=== PATIENT | female | born 1985 | race Caucasian/White ===

== ENCOUNTER 2024-04-15 19:06 | Emergency (ER) | payer BC, SELFPAY ==
[2024-04-15 19:08] VITALS: BP 151/69; PULSE 85; RESP 15; TEMP 37.2; O2SAT 97
--- NOTE | 2024-04-15 19:25 | ED.GENADUL_ITS ---
Discharge Plan Disposition Patient Disposition: Home Condition: Stable Discharge Details Clinical Impression: Cystitis ED Provider: Frederick Guaman Home Meds and New Rx's Prescriptions: New nitrofurantoin monohyd/m-cryst [Macrobid] 100 mg capsule 100 mg PO Q12H 5 Days Qty: 10 0RF Rx Instructions: must administer with a meal/food Discharge Instructions Additional Instructions: Your urine is consistent with a urinary tract infection if not improving in a few days follow-up with your primary care provider If not improving in a few days follow-up with your primary care provider If you feel more ill or have new symptoms such as high fevers or severe abdominal pain return to the emergency department for reevaluation HPI General Mode of arrival: ambulatory . Date/Time Provider Initiated Documentation: 04/15/24 19:07 . Limitations to Documentation: no limitations . Information obtained by: patient . History of Present Illness 38 year old F presents to the emergency department with the chief complaint of urinary symptoms, described as moderate, Patient started experiencing this day(s) (5) and it has been constant. No relieving factors improve symptom(s), No exacerbating factors reported . Patient notes denies fever/chills and nausea/vomiting. Patient did receive the following treatments prior to arrival, none Related Data Home Medications ?Medication ?Instructions ?Recorded ?Confirmed nitrofurantoin 100 mg PO Q12H 5 days #10 caps 04/15/24 monohydrate/macrocrystals 100 mg capsule (Macrobid) Previous Rx's ?Medication ?Instructions ?Recorded nitrofurantoin 100 mg PO Q12H 5 days #10 caps 04/15/24 monohydrate/macrocrystals 100 mg capsule (Macrobid) Allergies Allergy/AdvReac Type Severity Reaction Status Date / Time No Known Allergies Allergy Unverified 04/15/24 19:34 General Stated Complaint: Urinary LASHON: 4 Review of Systems All systems reviewed & are unremarkable except as noted in HPI and below Constitutional Constitutional: Denies chills, Denies fever(s) and Denies weakness Cardiovascular Cardiovascular: Denies dyspnea Respiratory Respiratory: Denies cough and Denies dyspnea Gastrointestinal Gastrointestinal: Denies abdominal pain and Denies vomiting Genitourinary Genitourinary: Reports dysuria and Reports urinary urgency Neurologic Neurologic: Denies weakness Exam Const General: no acute distress Orientation: alert HENWV Head: normal to inspection Ears: external ears normal General nose exam: external nose normal Mouth: moist mucous membranes Eyes General: appearance normal, both eyes and all related structures Neck Neck: normal visual inspection Resp Effort & Inspection: normal respiratory effort and able to speak in complete sentences Cardio Rate: regular rate GI Palpation: soft and nontender General: No CVA tenderness Skin General skin exam: no rashes or lesions noted Neuro General: patient alert and patient oriented x3 Extrem General: normal to inspection Psych Mental Status: mental status grossly normal Course Vital Signs Vital signs: Vital Signs Temperature 37.2 C 04/15/24 19:08 Pulse 85 04/15/24 19:08 Respiratory Rate 15 04/15/24 19:08 Blood Pressure 151/69 H 04/15/24 19:08 Pulse Oximetry 97 04/15/24 19:08 Temperature 37.2 C 04/15/24 19:08 Temperature Source Tympanic 04/15/24 19:08 Pulse 85 04/15/24 19:08 Respiratory Rate 15 04/15/24 19:08 Blood Pressure 151/69 H 04/15/24 19:08 Blood Pressure Position Sitting 04/15/24 19:08 Pulse Oximetry 97 04/15/24 19:08 Oxygen Delivery Method Nasal Cannula 04/15/24 19:08 Pain Level 6 04/15/24 19:08 Lab/Test Results Lab/Test Results: POC- Test(urine) Negative Medical Decision Making 38-year-old female who denies any chronic medical problems comes in with 5 days of burning with urination and urinary urgency. She says she has intermittent lower back pain as well. Denies any abdominal pain or vomiting or fevers. She appears well on exam speaking in full sentences in no distress. She has a soft nontender abdomen, no CVA tenderness. Denies any vaginal discharge or bleeding or irritation. Suspect cystitis, also could be Juan Manuel with her lower back pain. Will check UA and reassess. Given well appearance and afebrile do not feel other blood work at this time indicated. UA consistent with infection, given her well appearance and no CVA tenderness do not feel treatment for pyelonephritis indicated. Will start her on Macrobid and advised to follow-up with her PCP if not improving and return precautions given Differential Diagnosis Differential Diagnosis: cystitis, pyelo Quality:SDOH Health Related Social Needs: No Data to Display PFSH All Active Problems (Updated 04/15/24 @ 19:41 by Frederick Guaman MD) Cystitis (Acute) Social History Smoking risk assessment performed?: No
[2024-04-15 19:29] LABS: Bilirubin Negative (Negative); Blood Trace-intact (Negative); Clarity Clear (Clear); Glucose Negative (Negative); Ketones Negative (Negative); Leukocyte Esterase Small (Negative); Nitrite Negative (Negative); Urobilinogen 0.2 mg/dL (Up to 0.2)
[2024-04-15 19:34] LABS: Bacteria Rare HPF (Negative); C & S Indicated? Yes; Casts Negative LPF (Negative); Crystals Negative HPF (Negative); Epithelial Cells Rare HPF (Negative); Mucus Negative (Negative); RBC 0-2 HPF (0-2); WBC 20-50 HPF (0-5)
[2024-04-15] MEDS: MacroBID 100 MG CAP PO (19:46)
[2024-04-15 20:13] VITALS: BP 137/80; PULSE 70; RESP 20; TEMP 37.4; O2SAT 98
--- OUTSIDE RECORDS SUMMARY | 2024-04-15 20:21 | XMS_ITS ---
Author Organization Unknown Address [address] [place] [phone] Phone Care Team Providers Care Gunner'S Mate M Name Role Phone SUREKHA Roach Attending Unavailable Results LIPID PANEL* - Collect Date/ Time: 12/10/2021 10:58 [facility] ID: [id number] [address] [place] [address], [id number] LOINC: Test Value Unit Reference Range Code Code System Flag FASTING STATUS: NON FASTING CHOLESTEROL 145 mg/dL L=0 H=200 2093-3 LOINC TRIGLYCERIDES 42 mg/dL L=40 H=163 2571-8 LOINC HDL 60 mg/dL L=36 H=77 2085-9 LOINC non-HDL-C 85 mg/dL L=0 H=160 91559-8 LOINC LDL (CALC) 77 mg/dL L=0 H=130 72010-4 LOINC % HDL 41.4 % Chol/HDL Ratio 2.4 L=0.0 H=4.4 9830-1 LOINC CHD Relative Risk 0.5 x Avg L=0.0 H=1.0 LDL/HDL Ratio 1.3 L=0.0 H=3.2 74089-6 LOINC CHD Relative Risk. 0.4 x Avg L=0.0 H=1.0 FREE THYROXINE (FREE T4)* - Collect Date/Time: 12/10/2021 10:58 [facility] ID: [id number] [address] [place] [address], [address] LOINC: 3024-7 Test Value Unit Reference Range Code Code System Flag FREE THYROXINE 0.89 ng/dL L=0.76 H=1.46 3024-7 LOINC TSH THYROID STIMULATING HORM ONE* - Collect Date/Time: 12/10/2021 10:58 [facility] ID: [id number] [address] [place], [place], [address] LOINC: 3014-8 Test Value Unit Reference Range Code Code System Flag TSH 1.559 uIU/mL L=0.360 H=3.740 3014-8 LOINC COMPREHENSIVE METABOLIC PANE L (CMP) - Collect Date/Time: 12/10/2021 10:58 [facility] ID: [id number] [address] [place], [place], [address] LOINC: 63382-9 Test Value Unit Reference Range Code Code System Flag GLUCOSE 72 mg/dL L=70 H=116 2345-7 LOINC BUN 9 mg/dL L=6 H=25 3094-0 LOINC CREATININE 0.68 mg/dL L=0.51 H=0.95 2160-0 LOINC SODIUM SERUM 136 mmol/L L=136 H=145 2951-2 LOINC POTASSIUM SERUM 3.9 mmol/L L=3.4 H=5.2 2823-3 LOINC CHLORIDE SERUM 100 mmol/L L=96 H=110 2075-0 LOINC CARBON DIOXIDE (CO2) 26 mmol/L L=22 H=34 2028-9 LOINC ANION GAP 9.6 mmol/L 74633-2 LOINC CALCIUM SERUM 8.5 mg/dL L=8.2 H=10.2 49915-4 LOINC BILIRUBIN TOTAL 0.5 mg/dL L=0.0 H=1.3 1975-2 LOINC ALK. PHOS. 65 U/L L=46 H=116 6768-6 LOINC SGOT (AST) 15 U/L L=15 H=37 1920-8 LOINC SGPT (ALT) 16 U/L L=12 H=78 1742-6 LOINC TOTAL PROTEIN 7.5 gm/dL L=6.0 H=8.0 2885-2 LOINC ALBUMIN 3.9 gm/dL L=3.4 H=5.0 1751-7 LOINC AGE 36 years eGFR (non-Afr.Amer.) 97 mL/min 32144-6 LOINC eGFR (Afr-[place]ican) 118 mL/min 91878-9 LOINC Social History Type Status Start Date End Date Code Code Syst em Smoking History Never smoker (Never Smoked) [id number] SNOMED CT Sex Female Hospital Discharge Instructions Should you have any questions prior to discharge, please contact a member of your healthcare team. If you have left the hospital and have any questions, please contact your primary care physician. Reason For Referral No Data Found Plan of Treatment Pre-Op Testing 02/04/2021 LAB DRAW 20MIN 12/10/2021 Encounters Encounter Diagnosis Start Date Code Code Sys tem Adult health examination 12/10/2021 [id number] [facility] Personal Care Team Section Performer Name Performer Role Active Date Inactive Da te
--- OUTSIDE RECORDS SUMMARY | 2024-04-15 20:21 | XMS_ITS | Encounter Summary ---
Author Organization [facility] [address] Care Team Providers Care Bladder Changer Name Role Phone Laila Beasley ND Primary Care Provider [phone] Encounter Details Date Type Department Care Team (Late st Contact Info) Description 03/03/2021 Orders Only Cardiology at [address] [phone] Kristina Hawk MD [facility] [place] [address] Abnormal EKG (Primary Dx); Tachycardia, unspecified Social History Tobacco Use Types Packs/Day Years Used Date Smoking Tobacco: Never Assessed Sex and Gender Information Value Date Recorded Sex Assigned at Not on file Gender Identity Not on file Sexual Orientation Not on file documented as of this encounter Plan of Treatment Not on file documented as of this encounter Visit Diagnoses Diagnosis Abnormal EKG- Primary Nonspecific abnormal electrocardiogram (ECG) (EKG) Tachycardia, unspecified documented in this encounter Care Teams Bladder Changer Relationship Specialty Start Date End Date Laila Beasley ND [address] [place] [phone] PCP - General Naturopathic Medicine 03/02/21 documented as of this encounter
--- OUTSIDE RECORDS SUMMARY | 2024-04-15 20:21 | XMS_ITS | Clinical Summary ---
[place] [address] Care Team Providers Care Field Merchandiser Name Role Phone Laila Beasley ND Primary Care Provider [phone] Active Problems Problem Noted Date Diagnosed Date Abnormal EKG 03/03/2021 Tachycardia, unspecified 03/03/2021 Social History Tobacco Use Types Packs/Day Years Used Date Smoking Tobacco: Never Assessed Sex and Gender Information Value Date Recorded Sex Assigned at Not on file Gender Identity Not on file Sexual Orientation Not on file Plan of Treatment Health Maintenance Due Date Last Done Comments HIV screen 2002 Hepatitis C Screening 2002 Hepatitis B vaccine (0-59 yrs) (1) 2003 Tetanus/Diphtheria/Pertussis Vaccines (1 - Tdap) 07/19 HPV test 2014 PAP Smear 2014 Covid-19 Vaccine ( - 2022-24 season) 2024 Influenza (Flu) vaccine (1 o f 1 - Influenza standard series) 03/09/2024 Care Teams Field Merchandiser Relationship Specialty Start Date End Date Laila Beasley ND [address] [place] [phone] PCP - General Naturopathic Medicine 03/02/21
--- OUTSIDE RECORDS SUMMARY | 2024-04-15 20:21 | XMS_ITS | Encounter Summary ---
Author Organization [facility] Address [address] [place] [address] Care Team Providers Care Dimension Stone Quarry Supervisor Name Role Phone RamosLaila yeung Marley SANCHEZ Primary Care Provider [phone] Encounter Details Date Type Department Care Team (Late st Contact Info) Description 12/10/2021 Lab Requisition [facility] - [address] [address] Outr Resulting Lab, Provider Social History Tobacco Use Types Packs/Day Years Used Date Smoking Tobacco: Former Alcohol Use Standard Drinks/Week Comments Never 0 (1 standard drink = 0.6 oz pur e alcohol) Sex and Gender Information Value Date Recorded Sex Assigned at Not on file Gender Identity Not on file Sexual Orientation Not on file documented as of this encounter Plan of Treatment Not on file documented as of this encounter Procedures Procedure Name Priority Date/Time Associated Diagnosis Comments T3 FREE Routine 12/10/2021 10:58 EDT documented in this encounter Results * T3 FREE (12/10/2021 10:58 EDT) T3, Free 3.0 2.8 - 5.3 pg/mL 12/10/2021 22:12 EDT [facility] Blood VENOUS BLOOD / Unknown 12/10/2021 10:58 EDT 12/10/2021 21:40 EDT Provider Outr Resulting Lab CHEMISTRY & BLOOD GAS ORDERABLES [facility] [address] [place] [address] documented in this encounter Visit Diagnoses Not on filedocumented in this encounter Care Teams Dimension Stone Quarry Supervisor Relationship Specialty Start Date End Date Laila Beasley ND [address] [place] [phone] PCP - General 03/03/21 documented as of this encounter
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
--- OUTSIDE RECORDS SUMMARY | 2024-04-15 20:21 | XMS_ITS | Encounter Summary ---
Author Organization [facility] Address [address] [place] [address] Care Team Providers Care Black Oxide Operator Name Role Phone RamosLaila yeung Marley SANCHEZ Primary Care Provider [phone] Encounter Details Date Type Department Care Team (Late st Contact Info) Description 12/10/2021 Lab Requisition [facility] Pathology & Laboratory Medicine - [address] [address] Outr Resulting Lab, Provider Social History Tobacco [...] Procedure Name Priority Date/Time Associated Diagnosis Comments VITAMIN D (25,OH) Routine 12/10/2021 10: 58 EDT documented in this encounter Results * (ABNORMAL) VITAMIN D (25,OH) (12/10/2021 10:58 EDT) 25OH Vitamin D Tot 17(L) 30 - 100 ng/mL 12/12/2021 11:09 EDT [facility] Comment: Vitamin D 25,OH Interpretive Ranges: Deficiency: ??<10.0 ng/mL Insufficiency: ??10.0 - 30.0 ng/mL Sufficiency: ??30.0 - 100.0 ng/mL Toxicity: ??>100.0 ng/mL Blood VENOUS BLOOD / Unknown 12/10/2021 10:58 EDT 12/10/2021 21:39 EDT Provider Outr Resulting Lab CHEMISTRY & BLOOD GAS ORDERABLES [facility] [address] [place] [address] documented in this encounter Visit Diagnoses Not on filedocumented in this encounter Care Teams Black Oxide Operator Relationship Specialty Start Date End Date Laila Beasley ND [address] [place] [address] PCP - General 03/03/21 documented as of this encounter
--- OUTSIDE RECORDS SUMMARY | 2024-04-15 20:21 | XMS_ITS | Referral Summary ---
Author Organization [facility] Address [address] [place] [address] Care Team Providers Care Ship Carpenter Name Role Phone Laila Beasley ND Primary Care Provider [phone] Allergies No known active allergies Medications Medication Sig Dispensed Refills Start Date End Date Status 25/iron fum/folic/dha (-1 ORAL) Take by mouth daily. Active ferrous sulfate (IRON ORAL) Take by mouth daily. Active Social History Tobacco Use Types Packs/Day Years Used Date Smoking Tobacco: Former Alcohol Use Standard Drinks/Week Comments Never 0 (1 standard drink = 0.6 oz pur e alcohol) Sex and Gender Information Value Date Recorded Sex Assigned at Not on file Gender Identity Not on file Sexual Orientation Not on file Last Filed Vital Signs Vital Sign Reading Time Taken Comments Blood Pressure 100/76 03/04/2021 1433 EDT Pulse 76 03/04/2021 1433 EDT Temperature - - Respiratory Rate - - Oxygen Saturation 97% 03/04/2021 1433 EDT Inhaled Oxygen Concentration - - Weight 76.2 kg (168 lb) 03/04/2021 1433 EDT Height 162.6 cm (5' 4) 03/04/2021 1433 EDT Body Mass Index 28.84 03/04/2021 1433 EDT Plan of Treatment Not on file Care Teams Ship Carpenter Relationship Specialty Start Date End Date Laila Beasley ND [address] [place] [id number] PCP - General 03/03/21
--- OUTSIDE RECORDS SUMMARY | 2024-04-15 20:21 | XMS_ITS | Clinical Summary ---
Author Organization [facility] Address [address] [place] [address] Care Team Providers Care Oleo Hasher And Renderer Name Role Phone Laila Beasley ND Primary Care Provider [phone] Allergies No known active allergies Medications Medication [...] on file Sexual Orientation Not on file Obstetrics History Last Filed Vital Signs Vital Sign Reading [...] 28.84 03/04/2021 1433 EDT Plan of Treatment Health Maintenance Due Date Last Done Comments Hepatitis C Screen 1985 Hepatitis B Vaccine (1 of 3 - 19+ 3-dose series) 07/19 COVID-19 Vaccine (2022-24 season) 2023 Care Teams Oleo Hasher And Renderer Relationship Specialty Start Date End Date Laila Beasley ND [address] [place] [id number] PCP - General 03/03/21
--- OUTSIDE RECORDS SUMMARY | 2024-04-15 20:21 | XMS_ITS | Encounter Summary ---
Author Organization [facility] Address [address] [place] [address] Care Team Providers Care 3D Animator Name Role Phone RamosLaila yeung Marley SANCHEZ Primary Care Provider [phone] Encounter Details Date Type Department Care Team (Late st Contact Info) Description 12/10/2021 Lab Requisition [facility] Pathology & Laboratory Medicine - [facility] [address] [place] [address] Outr Resulting Lab, Provider Social History Tobacco [...] Name Priority Date/Time Associated Diagnosis Comments VITAMIN B12 Routine 12/10/2021 10:58 EDT documented in this encounter Results * VITAMIN B12 (12/10/2021 10:58 EDT) Vitamin B12 513 211 - 911 pg/mL 12/12/2021 10:54 EDT [facility] Blood VENOUS BLOOD / Unknown 12/10/2021 10:58 EDT 12/10/2021 21:39 EDT Provider Outr Resulting Lab CHEMISTRY & BLOOD GAS ORDERABLES [facility] [address] [place] [address] documented in this encounter Visit Diagnoses Not on filedocumented in this encounter Care Teams 3D Animator Relationship Specialty Start Date End Date Laila Beasley ND [address] [place] [address] PCP - General 03/03/21 documented as of this encounter
--- NOTE | 2024-04-17 12:26 | NUR.NOTE ---
Accessed Pt chart to obtain the name of the antibiotics give to Pt, for the specimen document.
== END 2024-04-15 20:18 | disposition home or self-care (01) ==
LOC: ER 20:19
PROVIDERS: Emergency Provider Emergency Medicine; PCP Naturopath
DX: N30.90 Cystitis, unspecified without hematuria (principal)
CPT/HCPCS: 81025; 99283; 81003; 81015; 87086